=== PATIENT | male | born 1945 | race Caucasian/White ===

== ENCOUNTER 2017-11-29 17:31 | Emergency (ER) | payer OTHER ==
[~2017-11-29] VITALS: Ht 172.7 cm; Wt 72.6 kg
[~2017-11-29 17:31] MED LIST: LIP10 PO; LISI-209 PO
[2017-11-29 17:48] VITALS: BP_SYST 134
[2017-11-29] MEDS ORDERED: MAG HYDROX/AL HYDROX/SIMETH 30 ML, LIDOCAINE VISCOUS 2% 15ML (PO) 10 ML, BELLADONNA ALK... PO ONE ×3 (18:15)
[2017-11-29 19:04] LABS: HEMATOCRIT 48.2 % (36-54); HEMOGLOBIN 15.9 g/dL (14.0-18.0); MEAN CORPUSCULAR HEMOGLOBIN 29 pg (27-31); MEAN CORPUSCULAR HGB CONC 33 % (32-36); MEAN CORPUSCULAR VOLUME 86 fL (79.0-98.0); PLATELET COUNT (AUTO) 235 K/uL (130-430); RED BLOOD CELL COUNT(AUTO) 5.58 MIL/uL (4.2-6.2); RED CELL DISTRIBUTION WIDTH 13.3 % (9.0-15.0); WHITE BLOOD COUNT (AUTO) 6.6 K/uL (4.8-10.8)
[2017-11-29 19:15] LABS: BAND % (MANUAL) 0 % (0-6); BASOPHILS % (MANUAL) 0 % (0-2); EOSINOPHILS % (MANUAL) 2 % (0-7); LYMPHOCYTES % (MANUAL) 3 % (20-46); MONOCYTES % (MANUAL) 1 % (0-11)
[2017-11-29] MEDS ORDERED: metroNIDAZOLE 500 MG TABLET PO ONE (19:15)
[2017-11-29] MEDS ORDERED: CLINDAMYCIN PHOSPHATE 300 MG/2 ML VIAL IM ONE (19:15)
[2017-11-29 19:34] VITALS: BP_SYST 126
[2017-11-29 19:35] LABS: ANION GAP 14 (5-15); CHLORIDE 100 mmol/L (98-107); CREATININE 0.92 mg/dL (0.55-1.30); GLUCOSE 131 mg/dL (70-99); POTASSIUM 3.8 mmol/L (3.5-5.1); SODIUM SERUM 135 mmol/L (136-145); UREA NITROGEN, BLOOD 17 mg/dL (8-21)
[2017-11-29 19:41] LABS: ALANINE AMINOTRANSFERASE 22 U/L (12-78); ALBUMIN 3.8 g/dL (3.4-4.8); ASPARTATE AMINOTRANSFERASE 22 U/L (10-37); TOTAL BILIRUBIN 0.7 mg/dL (0.0-1.0)
== END 2017-11-29 19:34 | disposition home or self-care (01) ==
LOC: SED 17:31
DX: K52.9 Noninfective gastroenteritis and colitis, unspecified (principal); I10 Essential (primary) hypertension
CPT/HCPCS: 36415; 74018; 74176; 80053; 85007; 85027; 96372; 99285; J2001; J3490

== ENCOUNTER 2021-08-18 12:08 | Outpatient (CLI) | payer OTHER | END 2021-08-18 20:53 | disposition home or self-care (01) | LOC: SMI 12:08 | DX: S43.004A Unspecified dislocation of right shoulder joint, initial encounter (principal); M25.511 Pain in right shoulder; M75.121 Complete rotator cuff tear or rupture of right shoulder, not specified as traumatic; M19.011 Primary osteoarthritis, right shoulder; X58.XXXA Exposure to other specified factors, initial encounter; Y93.89 Activity, other specified; Y92.89 Other specified places as the place of occurrence of the external cause; Y99.8 Other external cause status | CPT/HCPCS: 73221 ==

== ENCOUNTER 2021-12-11 13:03 | Emergency (ER) | payer MEDICARE, OTHER ==
[~2021-12-11] VITALS: Ht 170.2 cm; Wt 72.6 kg
[2021-12-11 13:27] VITALS: BP_SYST 140
[2021-12-11 14:16] LABS: BASOPHILS # (AUTO) 0.1 K/uL (0.0-0.2); BASOPHILS % (AUTO) 1.5 % (0.0-2.0); EOSINOPHILS # (AUTO) 0.1 K/uL (0.0-0.4); EOSINOPHILS % (AUTO) 1.9 % (0.0-4.0); HEMATOCRIT 40.6 % (36-54); HEMOGLOBIN 13.2 g/dL (14.0-18.0); LYMPHOCYTES # (AUTO) 1.1 K/uL (1.0-5.5); LYMPHOCYTES % (AUTO) 17.1 % (20.5-51.5); MEAN CORPUSCULAR HEMOGLOBIN 27 pg (27-31); MEAN CORPUSCULAR HGB CONC 33 % (32-36); MEAN CORPUSCULAR VOLUME 83 fL (79.0-98.0); MONOCYTES # (AUTO) 0.4 K/uL (0.0-1.0); MONOCYTES % (AUTO) 7.1 % (1.7-9.3); NEUTROPHILS # (AUTO) 4.5 K/uL (1.8-7.7); NEUTROPHILS % (AUTO) 72.4 % (40.0-70.0); PLATELET COUNT (AUTO) 211 K/uL (130-430); RED BLOOD CELL COUNT(AUTO) 4.89 MIL/uL (4.2-6.2); RED CELL DISTRIBUTION WIDTH 14.5 % (9.0-15.0); WHITE BLOOD COUNT (AUTO) 6.3 K/uL (4.8-10.8)
[2021-12-11 14:39] LABS: INR 0.9 (0.80-1.20); PROTHROMBIN TIME 9.7 SECS (9.5-12.5)
[2021-12-11 14:41] LABS: ANION GAP 6 (5-15); CALCIUM 9.1 mg/dL (8.4-11.0); CHLORIDE 103 mmol/L (98-107); CREATININE 0.88 mg/dL (0.55-1.30); GLUCOSE 112 mg/dL (70-99); POTASSIUM 3.9 mmol/L (3.5-5.1); SODIUM SERUM 138 mmol/L (136-145); UREA NITROGEN, BLOOD 12 mg/dL (8-21)
[2021-12-11 14:58] LABS: ALANINE AMINOTRANSFERASE 16 U/L (12-78); ALBUMIN 3.5 g/dL (3.4-4.8); ASPARTATE AMINOTRANSFERASE 19 U/L (10-37); TOTAL BILIRUBIN 0.3 mg/dL (0.0-1.0)
[2021-12-11 16:38] VITALS: BP_SYST 140
== END 2021-12-11 16:38 | disposition home or self-care (01) ==
LOC: SED 13:03
DX: R07.89 Other chest pain (principal); I10 Essential (primary) hypertension; Z79.899 Other long term (current) drug therapy; Z20.822 Contact with and (suspected) exposure to COVID-19
CPT/HCPCS: 36415; 71045; 80053; 82550; 83880; 84484; 85025; 85379; 85610-TC; 85730-TC; 93005; 99285

== ENCOUNTER 2023-06-28 18:05 | Emergency (ER) | payer OTHER ==
[~2023-06-28] VITALS: Ht 172.7 cm; Wt 68.0 kg
[2023-06-28 18:10] VITALS: BP_SYST 124; PULSE 85; RESP 16; TEMP 98.5; O2SAT 97
[2023-06-28] MEDS ORDERED: LIDOCAINE 1% 10 MG/ML, 20 ML MDV INJ ONE (18:45)
[2023-06-28 18:52] VITALS: RESP 16
[2023-06-28 19:03] LABS: BASOPHILS % (AUTO) 0.6 % (0.0-2.0); EOSINOPHILS # (AUTO) 0.3 K/uL (0.0-0.4); EOSINOPHILS % (AUTO) 4.2 % (0.0-4.0); HEMATOCRIT 38.6 % (36-54); HEMOGLOBIN 12.9 g/dL (14.0-18.0); LYMPHOCYTES # (AUTO) 1.3 K/uL (1.0-5.5); LYMPHOCYTES % (AUTO) 20.6 % (20.5-51.5); MEAN CORPUSCULAR HEMOGLOBIN 28 pg (27-31); MEAN CORPUSCULAR HGB CONC 33 % (32-36); MEAN CORPUSCULAR VOLUME 83 fL (79.0-98.0); MONOCYTES # (AUTO) 0.6 K/uL (0.0-1.0); MONOCYTES % (AUTO) 9.6 % (1.7-9.3); NEUTROPHILS # (AUTO) 4.1 K/uL (1.8-7.7); PLATELET COUNT (AUTO) 236 K/uL (130-430); RED BLOOD CELL COUNT(AUTO) 4.67 MIL/uL (4.2-6.2); RED CELL DISTRIBUTION WIDTH 14.3 % (9.0-15.0); WHITE BLOOD COUNT (AUTO) 6.3 K/uL (4.8-10.8)
[2023-06-28 19:11] LABS: ANION GAP 9 (5-15); CARBON DIOXIDE 27 mmol/L (23-29); CHLORIDE 100 mmol/L (98-107); CREATININE 1.01 mg/dL (0.55-1.30); GLUCOSE 112 mg/dL (74-106); LIPASE 33 U/L (16-77); POTASSIUM 3.6 mmol/L (3.5-5.1); SODIUM SERUM 136 mmol/L (136-145); UREA NITROGEN, BLOOD 9 mg/dL (8-21)
[2023-06-28 19:46] VITALS: BP_SYST 136; PULSE 100; TEMP 97.7; O2SAT 98
== END 2023-06-28 19:48 | disposition home or self-care (01) ==
LOC: SED 18:05
DX: S09.93XA Unspecified injury of face, initial encounter (principal); I10 Essential (primary) hypertension; Z79.899 Other long term (current) drug therapy; X58.XXXA Exposure to other specified factors, initial encounter; Y93.89 Activity, other specified; Y92.89 Other specified places as the place of occurrence of the external cause; Y99.8 Other external cause status
CPT/HCPCS: 36415; 80048; 83690; 85025; 85610; 85730; 99283